=== PATIENT | male | born 1980 | race African-American/Black ===

== ENCOUNTER → 2016-06-17 | Outpatient (CLI) | payer OTHER ==
[~2016-06-17] MED LIST: PRINIVIL20 MG PO; SEROQUEL300 MG PO
== END ==
LOC: COL.RAD 09:49
DX: R26.9 Unspecified abnormalities of gait and mobility (principal); R07.9 Chest pain, unspecified

== ENCOUNTER 2016-07-07 08:54 | Emergency (ER) | payer MEDICAID ==
[~2016-07-07] VITALS: Ht 172.7 cm; Wt 65.9 kg
[2016-07-07 09:00] VITALS: TEMP 97.5
[2016-07-07 10:11] LABS: BASO % 0.5 % (0.0-2.0); EOS # 0.3 (0.0-0.7); EOS % 4.3 % (0-4.0); GRAN # 3.8 (1.4-6.5); GRAN % 65.4 % (42.2-75.2); HEMATOCRIT 46.5 % (42.0-52.0); LYMPH # 1.4 (1.2-3.4); LYMPH % 23.7 % (20.0-51.0); MEAN CELL VOLUME 94 fl (80.0-100.0); MEAN CORPUSCULAR HEMOGLOBIN 33 pg (27.0-31.0); MEAN CORPUSCULAR HGB CONC 34 g/dl (33.0-37.0); MEAN PLATELET VOLUME 10.8 fl (7.4-10.4); MONO # 0.3 (0.1-0.6); MONO % 5.9 % (1.7-9.3); PLATELET COUNT 217 K/mm3 (130-400); RED BLOOD COUNT 4.93 M/mm3 (4.20-5.60); REDCELL DISTRIBUTION WIDTH-CV 12.5 % (11.5-14.5); WHITE BLOOD COUNT 5.8 K/mm3 (4.8-10.8)
[2016-07-07 10:22] LABS: INR 1.2 (0.8-3.0); PROTHROMBIN TIME 12.8 SECONDS (9.7-12.8)
[2016-07-07 10:24] LABS: PARTIAL THROMBOPLASTIN TIME 36.2 SECONDS (26.0-37.0)
[2016-07-07 10:44] LABS: ADJUSTED CALCIUM 9.6 mg/dL (8.4-10.2); ALANINE AMINOTRANSFERASE 24 U/L (21-72); ALKALINE PHOSPHATASE 61 U/L (50-136); ANION GAP 10 mmol/L (7-16); BILIRUBIN,TOTAL 1.1 mg/dL (0.0-1.0); BLOOD UREA NITROGEN 23 mg/dL (9-20); CALCIUM 9.6 mg/dL (8.4-10.2); CARBON DIOXIDE 28 mmol/L (22-30); CHLORIDE 101 mmol/L (98-107); CREATININE, serum 0.91 mg/dL (0.66-1.25); GLUCOSE 85 mg/dL (74-106); MAGNESIUM 1.9 mg/dL (1.6-2.3); PHOSPHOROUS 3.2 mg/dL (2.5-4.5); POTASSIUM 4.1 mmol/L (3.4-5.0); SODIUM 140 mmol/L (137-145); TOTAL PROTEIN 7.8 gm/dL (6.4-8.2)
[2016-07-07 10:52] LABS: ACETAMINOPHEN < 10 ug/mL (10-30); SALICYLATE < 1.0 mg/dL
[2016-07-07 10:57] LABS: TROPONIN-I < 0.012 ng/mL (0.000-0.034)
[2016-07-07 11:56] LABS: AMPHETAMINE URINE NEGATIVE; BARBITURATES URINE NEGATIVE; BENZODIAZEPINES URINE NEGATIVE; BUPRENORPHINE URINE NEGATIVE; METHADONE URINE NEGATIVE; OPIATES URINE NEGATIVE; OXYCODONE URINE NEGATIVE; PHENCYCLIDINE URINE NEGATIVE; PROPOXYPHENE URINE NEGATIVE; THC CANNABINOIDS URINE POSITIVE
[2016-07-07] MEDS ORDERED: PRINIVIL20 MG PO (14:57)
[2016-07-07 16:01] VITALS: BP 124/84; PULSE 75
[2016-11-29] MEDS ORDERED: SEROQUEL300 MG PO (12:56)
== END 2016-07-07 16:03 | disposition home or self-care (01) ==
LOC: COL.ER 08:54
PROVIDERS: Emergency Medicine
DX: R41.82 Altered mental status, unspecified (principal); R41.0 Disorientation, unspecified; I69.354 Hemiplegia and hemiparesis following cerebral infarction affecting left non-dominant side; I25.2 Old myocardial infarction
CPT/HCPCS: J2060

== ENCOUNTER 2016-12-06 13:00 | Day surgery (SDC) | payer MEDICAID ==
[~2016-12-06] VITALS: Ht 172.7 cm; Wt 70.0 kg
[2016-12-06 13:43] VITALS: BP 134/92; PULSE 60
[2016-12-06 14:22] VITALS: BP 157/71; PULSE 52
[2016-12-06 14:59] VITALS: BP 132/90; PULSE 83
[2016-12-06 15:15] VITALS: BP 127/96; PULSE 76
[2016-12-06 15:37] LABS: CEREBROSPINAL TUBE #4; CSF APPEARANCE CLEAR; CSF COLOR COLORLESS
[2016-12-09 08:41] LABS: ALBUMIN CSF 16.8 mg/dL (<=27.0); CSF IGG/ALBUMIN 0.47 (<=0.21); CSF,IGG 7.9 mg/dL (<=8.1)
[2016-12-09 08:53] LABS: CSF SYNTHESIS RATE 23.73 mg/24 h (<=12); CSF-IGG INDEX 1.31 (<=0.85); IGG/ALBUMIN SERUM 0.36 (<=0.40)
== END 2016-12-06 15:42 | disposition home or self-care (01) ==
LOC: COL.RAD 13:00
PROVIDERS: Psychiatry & Neurology Neurology
DX: G35 Multiple sclerosis (principal); R90.89 Other abnormal findings on diagnostic imaging of central nervous system

== ENCOUNTER 2017-05-12 06:33 | Inpatient (IN) | payer MEDICAID ==
[~2017-05-12] VITALS: Ht 175.3 cm; Wt 67.3 kg
[2017-05-12] VITALS (13 sets, daily range): BP systolic 140–168; BP diastolic 96–122; PULSE 59–78; TEMP 93.6–98.6; O2SAT 100
[2017-05-12 07:04] LABS: BASO % 0.2 % (0.0-2.0); EOS # 0.1 (0.0-0.7); EOS % 1.1 % (0-4.0); GRAN # 6.4 (1.4-6.5); HEMATOCRIT 48.7 % (42.0-52.0); HEMOGLOBIN 16.8 g/dl (13.5-18.0); LYMPH # 1.4 (1.2-3.4); LYMPH % 17.4 % (20.0-51.0); MEAN CELL VOLUME 96 fl (80.0-100.0); MEAN CORPUSCULAR HEMOGLOBIN 33 pg (27.0-31.0); MEAN CORPUSCULAR HGB CONC 35 g/dl (33.0-37.0); MEAN PLATELET VOLUME 10.3 fl (7.4-10.4); MONO # 0.3 (0.1-0.6); MONO % 3.9 % (1.7-9.3); PLATELET COUNT 160 K/mm3 (130-400); RED BLOOD COUNT 5.09 M/mm3 (4.20-5.60); REDCELL DISTRIBUTION WIDTH-CV 12.7 % (11.5-14.5)
[2017-05-12 07:16] LABS: ALANINE AMINOTRANSFERASE 27 U/L (21-72); ALBUMIN 4.1 gm/dL (3.5-5.0); ALKALINE PHOSPHATASE 65 U/L (50-136); ANION GAP 8 mmol/L (7-16); AST,SGOT 20 U/L (15-37); BILIRUBIN,TOTAL 0.5 mg/dL (0.0-1.0); BLOOD UREA NITROGEN 12 mg/dL (9-20); CALCIUM 9.2 mg/dL (8.4-10.2); CARBON DIOXIDE 22 mmol/L (22-30); CHLORIDE 111 mmol/L (98-107); CREATINE KINASE 107 U/L (55-170); CREATININE, serum 0.64 mg/dL (0.66-1.25); GLUCOSE 171 mg/dL (74-106); POTASSIUM 3.8 mmol/L (3.4-5.0); SODIUM 141 mmol/L (137-145)
[2017-05-12 07:21] LABS: ALCOHOL(ethanol),MEDICAL < 10 mg/dL
[2017-05-12] MEDS ORDERED: UNABLE TO ASSESS (07:51)
[2017-05-12 09:35] LABS: COLLECTION METHOD CATHETER
[2017-05-12 09:42] LABS: MUCOUS Present /lpf; PH 5 (5-8); SQUAMOUS EPITHELIAL 0-2 /hpf; URINE APPEARANCE Clear; URINE BACTERIA None Seen /hpf; URINE BILIRUBIN Negative (NEGATIVE); URINE BLOOD Negative (NEGATIVE); URINE COLOR Yellow; URINE GLUCOSE 1+ (NEGATIVE); URINE KETONE Negative (NEGATIVE); URINE LEUKOCYTE ESTERASE Negative (NEGATIVE); URINE NITRATE Negative (NEGATIVE); URINE PROTEIN(semi-quant) Negative (NEGATIVE); URINE RBC None Seen /hpf; URINE UROBILINOGEN Negative (NEGATIVE); URINE WBC 0-2 /hpf
[2017-05-12 09:52] LABS: TRICYCLIC ANTIDEPRESS URINE POSITIVE
[2017-05-12 12:42] LABS: CALCIUM 8.9 mg/dL (8.4-10.2); CREATININE, serum 0.67 mg/dL (0.66-1.25); MAGNESIUM 1.8 mg/dL (1.6-2.3); PHOSPHOROUS 3.1 mg/dL (2.5-4.5); POTASSIUM 4.2 mmol/L (3.4-5.0)
[2017-05-12 12:59] LABS: INR 1.1 (0.8-3.0); PROTHROMBIN TIME 12.8 SECONDS (9.7-12.8)
[2017-05-12 16:15] LABS: INR 1.1 (0.8-3.0); PROTHROMBIN TIME 12.9 SECONDS (9.7-12.8)
[2017-05-12 16:21] LABS: CALCIUM 9.3 mg/dL (8.4-10.2); CREATININE, serum 0.72 mg/dL (0.66-1.25); MAGNESIUM 1.8 mg/dL (1.6-2.3); PHOSPHOROUS 2.8 mg/dL (2.5-4.5); POTASSIUM 3.7 mmol/L (3.4-5.0)
[2017-05-13] VITALS (7 sets, daily range): BP systolic 138–162; BP diastolic 58–120; PULSE 58–95; TEMP 96.5–97.9
[2017-05-13 07:29] LABS: BASO % 0.5 % (0.0-2.0); EOS # 0.2 (0.0-0.7); EOS % 1.7 % (0-4.0); GRAN # 5.9 (1.4-6.5); GRAN % 68.6 % (42.2-75.2); HEMATOCRIT 49.7 % (42.0-52.0); LYMPH % 23.4 % (20.0-51.0); MEAN CELL VOLUME 95 fl (80.0-100.0); MEAN CORPUSCULAR HEMOGLOBIN 32 pg (27.0-31.0); MEAN CORPUSCULAR HGB CONC 34 g/dl (33.0-37.0); MEAN PLATELET VOLUME 11.6 fl (7.4-10.4); MONO # 0.5 (0.1-0.6); MONO % 5.5 % (1.7-9.3); PLATELET COUNT 173 K/mm3 (130-400); RED BLOOD COUNT 5.24 M/mm3 (4.20-5.60); REDCELL DISTRIBUTION WIDTH-CV 12.7 % (11.5-14.5)
[2017-05-13 07:33] LABS: PROTHROMBIN TIME 11.8 SECONDS (9.7-12.8)
[2017-05-13 07:37] LABS: ALBUMIN 4.3 gm/dL (3.5-5.0); BILIRUBIN,TOTAL 0.5 mg/dL (0.0-1.0); CALCIUM 9.4 mg/dL (8.4-10.2); CREATININE, serum 0.77 mg/dL (0.66-1.25); MAGNESIUM 1.8 mg/dL (1.6-2.3); PHOSPHOROUS 3.6 mg/dL (2.5-4.5); POTASSIUM 3.7 mmol/L (3.4-5.0); TOTAL PROTEIN 7.3 gm/dL (6.4-8.2)
[2017-05-14] VITALS (7 sets, daily range): BP systolic 142–159; BP diastolic 105–114; PULSE 74–98; TEMP 98.3–99.5; O2SAT 70–100
[2017-05-14] MEDS ORDERED: NORVASC 10MG10 MG PO (20:24)
[2017-05-14] MEDS ORDERED: ZESTRIL 10MG10 MG PO (20:25)
== END 2017-05-14 21:20 | disposition home or self-care (01) | DRG 923 ==
LOC: COL.ER 06:33 → ICU 07:34 → MEDICAL 18:04 → ICU 18:10 → MEDICAL 18:29 → ICU 05-13 16:23
PROVIDERS: Emergency Medicine; Internal Medicine Pulmonary Disease
DX: T68.XXXA Hypothermia, initial encounter (principal); F12.121 Cannabis abuse with intoxication delirium; X31.XXXA Exposure to excessive natural cold, initial encounter; I10 Essential (primary) hypertension; S01.111A Laceration without foreign body of right eyelid and periocular area, initial encounter; G35 Multiple sclerosis; W18.30XA Fall on same level, unspecified, initial encounter; R27.0 Ataxia, unspecified; F25.0 Schizoaffective disorder, bipolar type; Z91.14 Patient's other noncompliance with medication regimen
CPT/HCPCS: 99223-AI; 99232-AI; 99239; J0360; J7030; J7120